=== PATIENT | male | born 1995 | race Caucasian/White ===

== ENCOUNTER 2024-04-03 22:19 | Emergency (ER) | payer MEDICARE, MEDICAID, SELFPAY ==
--- NOTE | 2024-04-03 | ECG_ITS ---
Test Reason : CHEST PAIN Blood Pressure : */* mmHG Vent. Rate : 95 BPM Atrial Rate : 95 BPM P-R Int : 152 ms QRS Dur : 92 ms QT Int : 360 ms P-R-T Axes : 60 44 39 degrees QTcB Int : 452 ms Normal sinus rhythm Normal ECG No previous ECGs available Referred By: Generic ED Physician Electronically Signed By: Chilango Albert
--- NOTE | ~2024-04-03 | XR_ITS ---
CLINICAL HISTORY: sob 1 view chest x-ray Comparison: None Findings: No consolidation or effusion. Normal size heart. No acute fracture. IMPRESSION: 1. No acute findings. This document has been electronically signed by: Nam Echavarria MD on 04/03/2024 23:41:17
[2024-04-03 22:30] VITALS: BP 152/81; PULSE 104; RESP 20; TEMP 37; O2SAT 96; BMI 38.2
[2024-04-03 22:57] LABS: Basophils Absolute Auto 0.1 X10*3/uL (0.0-0.2); Basophils Percent Auto 0.6 % (0-2); Eosinophils Absolute Auto 0.1 X10*3/uL (0.0-0.4); Hematocrit 43.6 % (42.0-52.0); Hemoglobin 15.1 g/dl (14.0-18.0); Imm Gran Abs Auto 0.04 X10*3/uL (0.00-0.03); Imm Gran Pct Auto 0.4 % (0.0-0.4); Lymphocytes Absolute Auto 2.1 X10*3/uL (1.2-4.9); Lymphocytes Percent Auto 21.1 % (20-40); MANUAL DIFF FLAG NO; Mean Corpuscular HGB Conc 34.6 g/dl (31.0-36.0); Mean Corpuscular Hemoglobin 27.8 pg (27.0-33.0); Mean Corpuscular Volume 80.3 fL (80.0-98.0); Monocytes Absolute Auto 0.6 X10*3/uL (0.1-1.2); Monocytes Percent Auto 5.8 % (2-11); Neutrophils Percent Auto 71.1 % (45-73); Platelet Count 253 X10*3/uL (160-400); Red Blood Count 5.43 X10*6/uL (4.60-5.80); Red Cell Distribution Width 12.3 % (11.0-16.0); White Blood Count 9.8 X10*3/uL (4.8-10.8)
[2024-04-03 23:13] LABS: Alanine Aminotransferase 51 U/L (0-40); Albumin Level 4.7 g/dL (3.5-5.0); Alkaline Phosphatase 75 U/L (39-117); Anion Gap 13 (12-20); Aspartate Amino Transferase 29 U/L (5-37); Bilirubin Total 0.4 mg/dL (0.0-1.0); Blood Urea Nitrogen 11 mg/dL (9-16); Calcium 9.4 mg/dL (8.4-10.2); Carbon Dioxide 23 mmol/L (22-29); Chloride 109 mmol/L (96-108); Estimated Glomerular Filt Rate > 60; Glucose Random 93 mg/dL (60-115); Potassium 3.7 mmol/L (3.3-5.1); Sodium 141 mmol/L (135-145); Total Protein 7.9 g/dL (6.5-8.0)
[2024-04-03 23:17] LABS: Troponin-I High Sensitivity < 2.7 ng/L (<3.5-35.0)
[2024-04-03 23:33] LABS: Influenza A PCR NEGATIVE (Negative); Influenza B PCR NEGATIVE (Negative); Resp Syncy Virus RNA Qual PCR NEGATIVE (Negative); SARS COV2 PCR INHOUSE NEGATIVE (Negative)
--- NOTE | 2024-04-04 01:36 | ED_ITS ---
HPI - Chest Pain General Chief Complaint: Chest Pain Stated Complaint: chest pain,sob Time Seen by Provider: 04/04/24 00:57 Source: patient Limitations: no limitations History of Present Illness ED Provider: Asmita Jackson PA-C HPI narrative: 28-year-old male with a history of anxiety presents with chest pain times 1-1/2 days. Patient states he has been experiencing central chest tightness that has been intermittent over the past day and a half. Denies recent cough or cold symptoms, fever. Denies shortness of breath, diaphoresis, nausea vomiting or abdominal pain. Patient denies new activity where he could have strained his chest wall. Patient does states he has been anxious over the discomfort. Patient denies known, new psychosocial stressors. Related Data Allergies Allergy/AdvReac Type Severity Reaction Status Date / Time No Known Allergies Allergy Verified 04/03/24 22:31 [No Known Allergies*] Review of Systems 2 Review of Systems: Yes all other systems are reviewed and are negative Constitutional: Constitutional: Denies fatigue and Denies fever(s) Cardiovascular: Cardiovascular: Reports chest pain and Denies dyspnea Respiratory: Respiratory: Denies cough and Denies dyspnea Gastrointestinal: Gastrointestinal: Denies abdominal pain, Denies nausea and Denies vomiting Psychiatric: Psychiatric: Reports anxiety Endocrine: Endocrine: Denies fatigue PMFSH Past Medical History Attestation statement: The following information was validated with the patient. Social History Social History Advance Directives: No Advance Directives Information Provided: Yes Do you have a plan to hurt others: No Plan Physical Exam 2 Vital Signs: Vital Signs: Last Vital Signs Temp 98.6 F 04/03/24 22:30 Pulse 104 H 04/03/24 22:30 Resp 20 04/03/24 22:30 BP 152/81 H 04/03/24 22:30 Pulse Ox 96 04/03/24 22:30 O2 Del Method Room Air 04/03/24 22:30 BMI result Body Mass Index 38.2 Const: Other: Alert, well-appearing Orientation/consciousness: patient oriented x3 Resp: Effort & Inspection: normal respiratory effort Cardio: Other: Normal peripheral perfusion Skin: Other: Warm dry no rash Neuro: General: patient oriented x3, no focal motor deficits and CN's II-XI intact bilaterally Psych: Other: When I began asking the patient questions he becomes anxious, he is cooperative Medical Decision Making Medical Decision Making MDM Narrative: 28-year-old male with a history of anxiety presents with chest pain times 1-1/2 days. Patient states he has been experiencing central chest tightness that has been intermittent over the past day and a half. Denies recent cough or cold symptoms, fever. Denies shortness of breath, diaphoresis, nausea vomiting or abdominal pain. Patient denies new activity where he could have strained his chest wall. Patient does states he has been anxious over the discomfort. Patient denies known, new psychosocial stressors. Problem: Anxiety History: Per patient I have considered the following differential diagnoses: Anxiety, panic attack, ACS, chest wall strain, costochondritis, pneumonia Plan: I do feel the patient's anxiety is contributory to his symptoms. His symptoms are vague they have been transient, they are atypical, he also has no risk factors for coronary artery disease his heart score is 0. He has no mechanism of injury to suggest a chest wall strain. He has not had recent cough/cold symptoms, no fevers to suggest pneumonia or costochondritis. Screening labs including cardiac enzymes EKG and chest x-ray were obtained. The patient can follow up with his primary care provider. I have independently reviewed the following tests: Labs: No leukocytosis, not anemic, no electrolyte abnormality, troponin negative at less than 2.7, viral panel negative EKG: Sinus rhythm, rate of 95, no ischemic changes no ectopy QTC 452 Chest x-ray:Comparison: None Findings: No consolidation or effusion. Normal size heart. No acute fracture. IMPRESSION: 1. No acute findings. This document has been electronically signed by: Nam Echavarria MD on Lab Data 04/03/24 22:51 04/03/24 22:51 Labs: Lab Results 04/03/24 04/03/24 Range/Units 22:50 22:51 WBC 9.8 (4.8-10.8) X10*3/uL RBC 5.43 (4.60-5.80) X10*6/uL Hgb 15.1 (14.0-18.0) g/dl Hct 43.6 (42.0-52.0) % MCV 80.3 (80.0-98.0) fL MCH 27.8 (27.0-33.0) pg MCHC 34.6 (31.0-36.0) g/dl RDW 12.3 (11.0-16.0) % Plt Count 253 (160-400) X10*3/uL MPV 9.0 L (9.4-12.4) fL Immature Gran % (Auto) 0.4 (0.0-0.4) % Neut % (Auto) 71.1 (45-73) % Lymph % (Auto) 21.1 (20-40) % [place] % (Auto) 5.8 (2-11) % Eos % (Auto) 1.0 (0-4) % Baso % (Auto) 0.6 (0-2) % Lymph # (Auto) 2.1 (1.2-4.9) X10*3/uL [place] # (Auto) 0.6 (0.1-1.2) X10*3/uL Eos # (Auto) 0.1 (0.0-0.4) X10*3/uL Baso # (Auto) 0.1 (0.0-0.2) X10*3/uL Abs Immat Gran (auto) 0.04 H (0.00-0.03) X10*3/uL Absolute Neuts (auto) 7.0 (2.0-8.3) x10*3/uL Absolute Nucleated RBC 0.000 (0.0-0.012) X10*3/uL Nucleated RBC % (auto) 0.0 (0.0-0.2) /100WBC Sodium 141 (135-145) mmol/L Potassium 3.7 (3.3-5.1) mmol/L Chloride 109 H (96-108) mmol/L Carbon Dioxide 23 (22-29) mmol/L Anion Gap 13 (12-20) BUN 11 (9-16) mg/dL Creatinine 0.76 (0.5-1.4) mg/dL Estim Creat Clear Calc 215.0 Estimated GFR > 60 Random Glucose 93 (60-115) mg/dL Calcium 9.4 (8.4-10.2) mg/dL Total Bilirubin 0.4 (0.0-1.0) mg/dL AST 29 (5-37) U/L ALT 51 H (0-40) U/L Alkaline Phosphatase 75 (39-117) U/L Troponin I High Sens < 2.7 (<3.5-35.0) ng/L Total Protein 7.9 (6.5-8.0) g/dL Albumin 4.7 (3.5-5.0) g/dL Influenza Type A (PCR) NEGATIVE (Negative) Influenza Type B (PCR) NEGATIVE (Negative) RSV RNA Qual (PCR) NEGATIVE (Negative) SARS-CoV-2 RNA (RT-PCR) NEGATIVE (Negative) Discharge Plan Discharge Clinical Impression: Atypical chest pain Patient Disposition: Home, Self-Care Instructions: Noncardiac Chest Pain (ED) Additional Instructions: All of your screening labs including a cardiac enzymes were normal, there were no concerning changes on your EKG in the chest x-ray is clear. We also obtained a viral panel you were screened for influenza a and B, RSV and COVID, it was negative. Follow up with your primary care provider as needed. Print Language: Hungarian
[2024-04-04 01:44] VITALS: BP 120/60; PULSE 98; RESP 20; TEMP 37.1; O2SAT 98
== END 2024-04-04 01:50 | disposition home or self-care (01) ==
PROVIDERS: Emergency Provider Emergency Medicine; PCP Internal Medicine
DX: R07.89 Other chest pain (principal); R06.02 Shortness of breath; Z79.899 Other long term (current) drug therapy; Z03.818 Encounter for observation for suspected exposure to other biological agents ruled out
CPT/HCPCS: 0241U; 71045; 80053; 84484; 85025; 93005; 99283

== ENCOUNTER → 2024-04-03 22:26 | Outpatient (BNV) | payer MEDICARE, MEDICAID, SELFPAY | PROVIDERS: Emergency Provider Emergency Medicine; PCP Internal Medicine; Visit Provider Internal Medicine Cardiovascular Disease | DX: R07.9 Chest pain, unspecified (principal) | CPT/HCPCS: 93010 ==

== ENCOUNTER → 2024-04-03 23:10 | Outpatient (BNV) | payer MEDICARE, MEDICAID, SELFPAY | PROVIDERS: PCP Internal Medicine; Visit Provider Radiology Diagnostic Radiology | DX: R06.02 Shortness of breath (principal) | CPT/HCPCS: 71045 ==